=== PATIENT | female | born 2000 | race Caucasian/White ===

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

== ENCOUNTER 2022-06-05 12:40 | Emergency (ER) | payer OTHER, SELFPAY ==
[2022-06-05 12:54] VITALS: BMI 17.9
--- NOTE | 2022-06-05 13:15 | ED_ITS ---
HPI - Abdominal Pain General: Chief Complaint: Abdominal Pain Stated Complaint: abd pain Time Seen by Provider: 06/05/22 13:01 History of Present Illness: Ms. Grande is a 22-year-old lady presenting to the emergency department for abdominal pain. She reports about a week ago having urinary symptoms however these resolved, starting yesterday she has had left flank pain and abdominal pain associated with change in bowel movements. Notes moderate intensity pain worse with palpation and movement. Nausea but no vomiting, also endorses generalized unwell feeling. No other specific changes in health, exacerbating, or alleviating factors identified.. Onset (ago): day(s) Pain Consistency: constant Severity: moderate Quality: stabbing and aching Migration to: no migration Exacerbating factors: movement and other Relieving factors: nothing Associated Symptoms: Reports change in bowel habits and dysuria Related Data: Date of Last Menstrual Period: 05/14/22 Review of Systems General: Reports: 10 or more systems reviewed and unremarkable except in HPI and below GI: Reports: change in bowel habits : Reports: dysuria PFSH ED PFSH: Medical History No pertinent past medical history neghx: htn,dm,thyroid,dvt/pe PCP: [facility] clinic Psychiatric care Sleep disorder Surgical History History of hip surgery Children [place], [place]- in 7th grade hip dislocation during cheerleading. Surgery with pins and rods into the femur. Family History Grandmother Breast cancer Maternal---dx age unknown Stroke Maternal Grandfather Diabetes Paternal Mother Hypercholesteremia Hypertension Stroke Denies family history of Colon cancer Ovarian cancer Heart disease Uterine cancer Thyroid disease Social History Smoking and tobacco status: current every day smoker Alcohol intake: current Alcohol intake frequency: holidays/special occasions only Adopted: No Lives independently: No Household members: significant other and family Housing: Manufactured/Mobile home Female Reproductive History: Date of last menstrual period: 05/14/22 Physical Exam Const: COMMON NORMALS: alert GENERAL APPEARANCE: cooperative and well developed HENMT: COMMON NORMALS: normocephalic and atraumatic HEAD & SCALP: normocephalic and atraumatic Eye: COMMON NORMALS: conjunctivae normal CONJUNCTIVA: Yes conjunctivae normal SCLERA: sclerae normal Neck/C-Spine: COMMON NORMALS: supple GENERAL: Yes trachea midline Resp: COMMON NORMALS: normal respiratory effort EFFORT & INSPECTION: Yes able to speak in complete sentences Cardio: COMMON NORMALS: regular rate and regular rhythm RATE: regular rate RHYTHM: regular rhythm GI: COMMON NORMALS: Soft to palpation PALPATION: Yes Soft to palpation, Yes Tenderness to palpation present (GI), Yes Guarding due to palpation present (GI) and No Rigid due to palpation PERCUSSION: normal to percussion Extremity: GENERAL: Yes normal exam except as noted and No edema Neuro: COMMON NORMALS: moves all extremities SENSORIUM/ORIENTATION: Yes alert and No Orientation impaired Psych: COMMON NORMALS: mental status grossly normal and Normal thought process present THOUGHT PROCESS: Normal thought process present Course Vital Signs: Vital signs: Vital Signs Pulse Rate 62 06/05/22 16:22 Respiratory Rate 18 06/05/22 16:22 Blood Pressure 134/72 06/05/22 15:47 Pulse Oximetry 99 06/05/22 16:22 Oxygen Delivery Me thod Room Air 06/05/22 15:47 MDM - Abdominal Pain Medical Decision Making 22-year-old female presenting to the emergency room with abdominal symptoms. Uncomfortable appearing due to pain however nontoxic. Abdominal tenderness without evidence of acute surgical abdomen. Labs with no significant hematologic abnormality. Metabolic panel with mild hypokalemia and dehydration. Lipase is minimally elevated. Urinalysis concerning for urinary tract infection in the context of symptoms despite mild squamous epithelial contamination. CT demonstrates periportal edema which given absence of laboratory study findings and specific right upper quadrant abdominal tenderness is likely due to fluid bolus, there is mild prominence of pancreatic head and some evidence of constipation. Incidental findings discussed with patient. Patient improved with IV fluids, analgesia, antiemetic and able to tolerate p.o. intake. Antibiotic dose given for UTI. The results of ED evaluation were discussed with the patient including prescriptions and/or symptomatic cares (if applicable) including appropriate and responsible use, followup plan, and return precautions. The patient verbalized understanding and felt safe for discharge. Medical Records I reviewed the patient's medical records. Lab Data I reviewed the patient's lab results. 06/05/22 13:05 06/05/22 13:05 Labs/Radiology: Radiology Impressions Abdomen/Pelvis CT 06/05/22 14:47 IMPRESSION: 1. Small amount of free fluid in the pelvis may be physiologic. 2. Marked periportal edema. This can be seen with excessive IV fluid hydration and acute hepatitis. 3. Mildly prominent pancreatic head. May be on the basis of patient's young age. No discrete mass identified. Correlate for possible mild pancreatitis. 4. The appendix is not visualized. Laboratory Results WBC 10.9 10^3/uL (4.5-13.0) 06/05/22 13:05 RBC 4.79 10^6/uL (4.1-5.3) 06/05/22 13:05 Hgb 13.7 g/dL (11.5-15.3) 06/05/22 13:05 Hct 42.1 % (37.0-47.0) 06/05/22 13:05 MCV 87.9 fl (81-99) 06/05/22 13:05 MCH 28.6 pg (28.0-34.0) 06/05/22 13:05 MCHC 32.5 g/dL (30.0-36.0) 06/05/22 13:05 RDW 12.5 % (12.1-15.1) 06/05/22 13:05 Plt Count 252 10^3/cmm (130-400) 06/05/22 13:05 MPV 10.6 fL (7.4-10.4) H 06/05/22 13:05 Neut % (Auto) 64.9 % 06/05/22 13:05 Lymph % (Auto) 20.5 % 06/05/22 13:05 [place] % (Auto) 10.3 % 06/05/22 13:05 Eos % (Auto) 3.3 % 06/05/22 13:05 Baso % (Auto) 0.6 % 06/05/22 13:05 Neut # (Auto) 7.09 10^3/uL (1.8-8.0) 06/05/22 13:05 Lymph # (Auto) 2.2 10^3/uL (1.5-6.5) 06/05/22 13:05 [place] # (Auto) 1.1 10^3/uL (0.2-0.9) H 06/05/22 13:05 Eos # (Auto) 0.4 10^3/uL (0.0-0.8) 06/05/22 13:05 Baso # (Auto) 0.1 10^3/uL (0.0-0.1) 06/05/22 13:05 Nucleated RBC % (auto) 0 % 06/05/22 13:05 Nucleated RBCs # 0.0 /100WBC 06/05/22 13:05 Sodium 139 mmol/L (136-145) 06/05/22 13:05 Potassium 3.4 mmol/L (3.5-5.1) L 06/05/22 13:05 Chloride 104 mmol/L (98-107) 06/05/22 13:05 Carbon Dioxide 25 mmol/L (22-29) 06/05/22 13:05 Anion Gap 13.4 (5-19) 06/05/22 13:05 BUN 5 mg/dL (6-20) L 06/05/22 13:05 Creatinine 0.6 mg/dL (0.5-0.9) 06/05/22 13:05 GFR Calculation 127.5 mL/min (90-130) 06/05/22 13:05 Glucose 71 mg/dL (65-115) 06/05/22 13:05 Calculated Osmolality 284 mOsm/kg (285-295) L 06/05/22 13:05 Calcium 9.0 mg/dL (8.5-10.5) 06/05/22 13:05 Total Bilirubin 0.2 mg/dL (0.15-1.2) 06/05/22 13:05 AST 13 U/L (0-32) 06/05/22 13:05 ALT 11 U/L (0-33) 06/05/22 13:05 Alkaline Phosphatase 109 U/L (35-105) H 06/05/22 13:05 Total Protein 8.1 g/dL (6.6-8.7) 06/05/22 13:05 Albumin 4.4 g/dL (3.5-5.2) 06/05/22 13:05 Globulin 3.7 g/dL (1.3-4.6) 06/05/22 13:05 Lipase 64 U/L (13-60) H 06/05/22 13:05 HCG, Qual Negative (Negative) 06/05/22 13:05 Urine Color Light yellow (Yellow) 06/05/22 13:00 Urine Appearance Hazy (CLEAR) A 06/05/22 13:00 Urine pH 6 (5-7) 06/05/22 13:00 Ur Specific [place] 1.005 (1.005-1.030) 06/05/22 13:00 Urine Protein Neg (Negative) 06/05/22 13:00 Urine Glucose (UA) Norm (Normal) 06/05/22 13:00 Urine Ketones Negative (Negative) 06/05/22 13:00 Urine Blood 3+ (Negative) H 06/05/22 13:00 Urine Nitrate Negative (Negative) 06/05/22 13:00 Urine Bilirubin Neg (Negative) 06/05/22 13:00 Urine Urobilinogen Norm mg/dL (Negative) 06/05/22 13:00 Ur Leukocyte Esterase 2+ (Negative) H 06/05/22 13:00 Urine RBC 5-10 /hpf (0-2) H 06/05/22 13:00 Urine WBC 55-80 /hpf (0-5) H 06/05/22 13:00 Ur Squamous Epith Cells 5-10 /hpf (0-5) H 06/05/22 13:00 Amorphous Sediment Not Reportable 06/05/22 13:00 Urine Bacteria 1+ /hpf (NONE) H 06/05/22 13:00 Discharge Plan Discharge Patient Disposition: Home Clinical Impression: UTI (urinary tract infection), Pancreatitis, Dehydration, mild Condition: Stable Prescriptions: New ondansetron 4 mg tablet,disintegrating 4 mg PO Q8H PRN (Reason: nausea and vomiting) Qty: 15 0RF oxycodone 5 mg tablet 5 mg PO Q4H PRN (Reason: pain) Qty: 10 0RF No Action paroxetine HCl 25 mg tablet extended release 24 hr 25 mg PO DAILY Qty: 30 1RF prazosin 2 mg capsule 2 mg PO QPM Discharge Orders: Discharge ED (Routine); Ordered 06/05/22 Ordered By: James Raymundo Referrals: Nora Fowler, CONSOLIDATOR [Primary Care Provider] - Discharge Diet: Advance as tolerated and Clear Liquid Discharge Activity: Increase activity as tolerated Patient Instructions: Pancreatitis (ED), Urinary Tract Infection in Women (ED), Opioid Safety Activity Restrictions/Additional Instructions: Thank you for visiting the emergency department. You were seen and evaluated for abdominal pain. The most likely cause of your symptoms is multifactorial including urinary tract infection and mild pancreatitis. I will treat the urinary tract infection with antibiotics. The pancreatitis requires supportive care at this point. Please ensure that you are staying hydrated. I will prescribe oxycodone, use this cautiously as discussed. I will also prescribe antinausea medication. Return to the emergency department for worsening symptoms or anything else that you are concerned about and feel needs emergency department evaluation. Coding Level of Care Code ED Gas Plant Dispatcher for Holly Lemos
[2022-06-05 13:18] VITALS: BP 131/80; PULSE 56; RESP 16; O2SAT 100
[2022-06-05 13:31] LABS: Basophils # 0.1 10^3/uL (0.0-0.1); Basophils % 0.6 %; Eosinophils # 0.4 10^3/uL (0.0-0.8); Eosinophils % 3.3 %; Hematocrit 42.1 % (37.0-47.0); Hemoglobin 13.7 g/dL (11.5-15.3); Lymphocytes # 2.2 10^3/uL (1.5-6.5); Lymphocytes % 20.5 %; Mean Corpuscular HGB Conc 32.5 g/dL (30.0-36.0); Mean Corpuscular Hemoglobin 28.6 pg (28.0-34.0); Mean Corpuscular Volume 87.9 fl (81-99); Mean Platelet Volume 10.6 fL (7.4-10.4); Monocytes # 1.1 10^3/uL (0.2-0.9); Monocytes % 10.3 %; Neutrophils # 7.09 10^3/uL (1.8-8.0); Neutrophils % 64.9 %; Nucleated Red Blood Cells % 0 %; Platelet Count 252 10^3/cmm (130-400); Red Blood Count 4.79 10^6/uL (4.1-5.3); Red Cell Distribution Width 12.5 % (12.1-15.1); White Blood Count 10.9 10^3/uL (4.5-13.0)
[2022-06-05] MEDS: sodium chloride 0.9% 1,000 ML 999 ML IV (13:32)
[2022-06-05] MEDS: ondansetron 2 mg/ML SDV 2 mL 4 MG IVP (13:33)
[2022-06-05] MEDS: morphine 4 mg/mL SDV 1 mL IVP (13:33)
[2022-06-05 13:42] LABS: Alanine Aminotransferase 11 U/L (0-33); Albumin Level 4.4 g/dL (3.5-5.2); Alkaline Phosphatase 109 U/L (35-105); Anion Gap 13.4 (5-19); Aspartate Amino Transferase 13 U/L (0-32); Blood Urea Nitrogen 5 mg/dL (6-20); Carbon Dioxide 25 mmol/L (22-29); Chloride 104 mmol/L (98-107); Globulin 3.7 g/dL (1.3-4.6); Glomerular Filtration Rate 127.5 mL/min (90-130); Glucose 71 mg/dL (65-115); Lipase 64 U/L (13-60); Osmolality Calculated 284 mOsm/kg (285-295); Potassium 3.4 mmol/L (3.5-5.1); Sodium 139 mmol/L (136-145); Total Bilirubin 0.2 mg/dL (0.15-1.2); Total Protein 8.1 g/dL (6.6-8.7)
[2022-06-05 13:51] LABS: HCG, Serum Qual Negative (Negative)
[2022-06-05 14:18] VITALS: PULSE 65; RESP 16; O2SAT 100
[2022-06-05 14:45] LABS: Add Urine Microscopic? YES; Bilirubin Urine Neg (Negative); Blood Urine 3+ (Negative); Glucose Urine UA Norm (Normal); Ketones Urine Negative (Negative); Leukocyte Esterase Urine 2+ (Negative); Nitrate Urine Negative (Negative); Protein Urine Neg (Negative); Specific Gravity, Urine 1.005 (1.005-1.030); Urine Appearance Hazy (CLEAR); Urine Color Light yellow (Yellow); Urobilinogen Urine Norm (Negative); pH Urine 6 (5-7)
[2022-06-05 14:46] LABS: Add Urine Culture? Yes; Bacteria Urine 1+ /hpf; WBC Urine 55-80 /hpf (0-5)
--- NOTE | 2022-06-05 14:47 | CT_ITS ---
WS: [id number] CT ABDOMEN AND PELVIS WITH CONTRAST HISTORY: L flank and generalized abd pain TECHNIQUE: Imaging performed of the abdomen and pelvis with IV contrast. Single phase imaging of the abdomen. Coronal and sagittal reformats are submitted. All CT scans at [facility] use at [address] one of these dose optimization techniques: automated exposure control; mA and/or kV adjustment per patient size (includes targeted exams where dose is matched to clinical indication); or iterative re construction. IV CONTRAST: Omnipaque 350; 100 mL IV. Oral contrast: No DLP: 286.57 mGy.cm COMPARISON: None available. Lower thorax: Lung bases are clear. Heart is normal size. No hiatal hernia. Liver/biliary system: Normal size liver. Marked periportal edema. No liver mass. Normal portal vein. Gallbladder: Normal. No gallstones or wall thickening. No pericholecystic fluid. Pancreas: Pancreatic head is very mildly prominent. No discrete mass. No adjacent inflammation. Commo n bile duct and pancreatic duct are normal. Spleen: Normal size spleen. No mass or infarct. Adrenal glands: Normal. Right kidney: Normal. Left kidney: Normal. Aorta: Normal. Lymphadenopathy: None. Free fluid: Small amount of free fluid in the cul-de-sac. GI tract: Nondistended stomach and small bowel. Moderate air throughout the colon. The appendix is no t definitely visualized. No inflammatory change in the RIGHT lower quadrant to suggest appendicitis. Abdominal wall: Unremarkable abdominal wall. No hernia. Pelvis: Small amount of physiologic free fluid in the pelvis. Bones: Unremarkable. CT/CT abdomen pelvis w con* [id number] IMPRESSION: 1. Small amount of free fluid in the pelvis may be physiologic. 2. Marked periportal edema. This can be seen with excessive IV fluid hydration and acute hepatitis. 3. Mildly prominent pancreatic head. May be on the basis of patient's young ag e. No discrete mass identified. Correlate for possible mild pancreatitis. 4. The appendix is not visualized.
[2022-06-05] MEDS: iohexol 350 mg/mL 500 mL Btl (per mL) IV (15:03)
[2022-06-05 15:47] VITALS: BP 134/72; PULSE 63; RESP 16; O2SAT 100
[2022-06-05] MEDS: cefTRIAXone 1,000 MG in sodium chloride 0.9% (plus) 50 ML 100 MG IV (15:50)
[2022-06-05 16:22] VITALS: PULSE 62; RESP 18; O2SAT 99
== END 2022-06-05 16:23 | disposition home or self-care (01) ==
PROVIDERS: Emergency Provider Emergency Medicine; PCP Nurse Practitioner Family
DX: N39.0 Urinary tract infection, site not specified (principal); K85.90 Acute pancreatitis without necrosis or infection, unspecified; E86.0 Dehydration; F17.210 Nicotine dependence, cigarettes, uncomplicated
CPT/HCPCS: 36415; 74177; 80053; 81001; 83690; 84703; 85025; 87077; 87086; 87186; 96365; 96375; 99285; J0696; J2270; J2405; J7030; Q9967

== ENCOUNTER 2023-06-28 15:05 | Outpatient (CLI) | payer SELFPAY ==
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
== END 2023-06-28 15:06 | disposition home or self-care (01) ==
PROVIDERS: PCP Nurse Practitioner Family; Visit Provider Emergency Medicine
DX: S67.193A Crushing injury of left middle finger, initial encounter (principal); X58.XXXA Exposure to other specified factors, initial encounter
CPT/HCPCS: 73130

== ENCOUNTER 2023-11-02 22:42 | Emergency (ER) | payer OTHER, SELFPAY ==
[2023-11-02 22:47] VITALS: BP 135/74; PULSE 64; RESP 17; O2SAT 100; BMI 18.3
[2023-11-02 23:26] VITALS: BP 109/80; PULSE 67; RESP 16; O2SAT 100
[2023-11-02 23:30] VITALS: BP 128/84; PULSE 57; RESP 16; O2SAT 99
--- NOTE | 2023-11-02 23:56 | W.ED.FEMALGU ---
HPI - Female Genitourinary General: Chief complaint: Urogenital-Female Stated complaint: Little\Pain Time Seen by Provider: 11/02/23 22:55 History of Present Illness: 23-year-old female who says she is G7, P0 at what she believes is 9 weeks or so. She presents with back pain, cramping abdominal pain, and dark brown spotting. She says it started as a light brown spotting yesterday, and is now dark brown. No passage of clots or tissue. No fever. No vomiting. She states she had to have a D&C in October of last year after miscarriage. Date of Last Menstrual Period: 08/22/23 Related Data Previous Rx's Medication Instructions Recorded sertraline 25 mg tablet (Zoloft) 25 mg PO DAILY #30 tabs 03/04/23 Allergies Allergy/AdvReac Type Severity Reaction Status Date / Time Sulfa (Sulfonamide Allergy Intermediate hives Verified 11/02/23 22:51 Antibiotics) lactose Allergy ADR-Gastrointestinal Verified 11/02/23 22:51 Upset [facility] ED PFSH: Medical History Psychiatric care No pertinent past medical history neghx: htn,dm,thyroid,dvt/pe PCP: Mtn. Zheng [facility] clinic Sleep disorder Surgical History History of hip surgery Children [place], [place]- in 7th grade hip dislocation during cheerleading. Surgery with pins and rods into the femur. Family History Grandmother Breast cancer Maternal---dx age unknown Stroke Maternal Grandfather Diabetes Paternal Mother Hypercholesteremia Hypertension Stroke Denies family history of Colon cancer Ovarian cancer Heart disease Uterine cancer Thyroid disease Social History Smoking and tobacco/nicotine status: current every day tobacco/nicotine user Alcohol intake: current Alcohol intake frequency: holidays/special occasions only Substance/Drug Use: current Substance/Drug use frequency: Special occassions/opportunity only Adopted: No Lives independently: No Household members: significant other and family Housing: Manufactured/Mobile home Female Reproductive History: Date of last menstrual period: 08/22/23 Physical Exam Const: COMMON NORMALS: no acute distress GENERAL APPEARANCE: cooperative; not ill appearing and not frail appearing HENMT: COMMON NORMALS: normocephalic, atraumatic and Normal external nose present HEAD & SCALP: normocephalic and atraumatic FACE & SINUS: normal facial exam and face symmetric NOSE: Normal external nose present Eye: COMMON NORMALS: Equal, round and reactive pupils present and EOMs intact bilaterally PUPIL: Yes Equal, round and reactive pupils present Neck/C-Spine: GENERAL: Yes trachea midline Chest: CHEST: Yes Symmetrical chest wall rise Resp: COMMON NORMALS: normal respiratory effort, No retractions, No use of accessory muscles and clear to auscultation bilaterally AUSCULTATION: clear to auscultation bilaterally Cardio: COMMON NORMALS: regular rate and regular rhythm RATE: regular rate RHYTHM: regular rhythm GI: COMMON NORMALS: Normal to inspection, nondistended, normoactive bowel sounds present PALPATION: Yes Tenderness to palpation present (GI) (Pelvic) Extremity: COMMON NORMALS: no pedal edema Neuro: TERRI COMA SCALE: document GCS findings Terir coma scale eye opening: Spontaneous Terri coma scale verbal response: Orientated Terri coma scale motor response: Obey commands [place] coma scale total score: 15 SENSORY EXAM: Yes extremities (intact) Psych: COMMON NORMALS: speech normal SPEECH: Yes normal speech Skin: COMMON NORMALS: no rashes or lesions noted GENERAL SKIN EXAM: no rashes or lesions noted Course Vital Signs: Vital signs: Vital Signs Pulse Rate 67 11/02/23 23:26 Respiratory Rate 16 11/02/23 23:26 Blood Pressure 109/80 11/02/23 23:26 Pulse Oximetry 100 11/02/23 23:26 Oxygen Delivery Me thod Room Air 11/02/23 23:26 MDM - Female Medical Decision Making 23-year-old female presenting with pelvic and back pain, bloody spotting. Prior history of miscarriage. CBC is normal. Bicarbonate is 21. BMP is otherwise not remarkable. No significant urinary tract infection. Ultrasound reveals intrauterine gestational sac, but with no pole. Sac measures 5.5 weeks, which is consistent with her quant. Early versus blighted ovum. Counseled patient on results. She will need follow-up hCG quant in a couple of days. If numbers increasing appropriately, she will require repeat ultrasound to ensure viable and establish dating. She will follow-up with her PCP regarding this. Her ENROLLMENT ELIGIBILITY REPRESENTATIVE has not been established yet. Lab Data 11/02/23 00:04 11/02/23 00:04 Radiology Impressions Obstetrics Ultrasound 11/03/23 01:14 IMPRESSION: 1. Intrauterine gestational sac with a yolk sac but no pole. Findings could represent early intrauterine of uncertain viability. failure cannot be excluded given discordant dating. Recommend close clinical and imaging follow-up. 2. Presumed right ovarian corpus luteum. Attention on follow-up exam. Laboratory Results WBC 11.28 10^3/uL (3.29-11.43) 11/02/23 00:04 RBC 4.41 10^6/uL (3.85-5.65) 11/02/23 00:04 Hgb 13.00 g/dL (11.27-16.99) 11/02/23 00:04 Hct 38.9 % (36-47) 11/02/23 00:04 MCV 88.2 fl (85-98) 11/02/23 00:04 MCH 29.5 pg (27-33) 11/02/23 00:04 MCHC 33.4 g/dL (30-55) 11/02/23 00:04 RDW 13.0 % (12.1-15.1) 11/02/23 00:04 Plt Count 207 10^3/cmm (157-399) 11/02/23 00:04 MPV 10.8 fL (7.4-10.4) H 11/02/23 00:04 Neut % (Auto) 72.3 % 11/02/23 00:04 Lymph % (Auto) 20.5 % 11/02/23 00:04 [place] % (Auto) 5.8 % 11/02/23 00:04 Eos % (Auto) 0.8 % 11/02/23 00:04 Baso % (Auto) 0.3 % 11/02/23 00:04 Neut # (Auto) 8.17 10^3/uL (1.8-7.7) H 11/02/23 00:04 Lymph # (Auto) 2.3 10^3/uL (0.8-4.8) 11/02/23 00:04 [place] # (Auto) 0.7 10^3/uL (0.2-0.9) 11/02/23 00:04 Eos # (Auto) 0.1 10^3/uL (0.0-0.8) 11/02/23 00:04 Baso # (Auto) 0.0 10^3/uL (0.0-0.1) 11/02/23 00:04 Nucleated RBC % (auto) 0 % 11/02/23 00:04 Nucleated RBCs # 0.0 /100WBC 11/02/23 00:04 Sodium 137 mmol/L (136-145) 11/02/23 00:04 Potassium 3.5 mmol/L (3.5-5.1) 11/02/23 00:04 Chloride 102 mmol/L (98-107) 11/02/23 00:04 Carbon Dioxide 21 mmol/L (22-29) L 11/02/23 00:04 Anion Gap 17.5 (5-19) 11/02/23 00:04 BUN 12 mg/dL (6-20) 11/02/23 00:04 Creatinine 0.6 mg/dL (0.5-0.9) 11/02/23 00:04 GFR Calculation 126.2 mL/min (90-130) 11/02/23 00:04 Glucose 89 mg/dL (65-115) 11/02/23 00:04 Calculated Osmolality 283 mOsm/kg (285-295) L 11/02/23 00:04 Calcium 8.9 mg/dL (8.5-10.5) 11/02/23 00:04 Total Bilirubin 0.2 mg/dL (0.15-1.2) 11/02/23 00:04 AST 11 U/L (0-32) 11/02/23 00:04 ALT 9 U/L (0-33) 11/02/23 00:04 Alkaline Phosphatase 64 U/L (35-105) 11/02/23 00:04 C-Reactive Protein 3.0 mg/L (0.0-4.9) 11/02/23 00:04 Total Protein 7.0 g/dL (6.6-8.7) 11/02/23 00:04 Albumin 4.2 g/dL (3.5-5.2) 11/02/23 00:04 Globulin 2.8 g/dL (1.3-4.6) 11/02/23 00:04 Lipase 62 U/L (13-60) H 11/02/23 00:04 Ser , Semi-Qnt 31808.00 mIU/mL 11/02/23 00:04 Urine Color Yellow (Yellow) 11/02/23 23:15 Urine Appearance Clear (CLEAR) 11/02/23 23:15 Urine pH 6.0 (5-7) 11/02/23 23:15 Ur Specific [place] 1.007 (1.005-1.030) 11/02/23 23:15 Urine Protein Negative (Negative) 11/02/23 23:15 Urine Glucose (UA) Negative (Normal) 11/02/23 23:15 Urine Ketones Negative (Negative) 11/02/23 23:15 Urine Blood 2+ (Negative) A 11/02/23 23:15 Urine Nitrate Negative (Negative) 11/02/23 23:15 Urine Bilirubin Negative (Negative) 11/02/23 23:15 Urine Urobilinogen 0.2 mg/dL (Negative) 11/02/23 23:15 Ur Leukocyte Esterase 1+ (Negative) A 11/02/23 23:15 Urine RBC 0-2 /hpf (0-2) 11/02/23 23:15 Urine WBC 0-5 /hpf (0-5) 11/02/23 23:15 Ur Squamous Epith Cells 0-5 /hpf (0-5) 11/02/23 23:15 Amorphous Sediment Not Reportable 11/02/23 23:15 Urine Bacteria Trace /hpf (NONE) 11/02/23 23:15 Hyaline Casts 0.40 /lpf 11/02/23 23:15 All radiology interpretation(s) finalized by discharge Discharge Plan Discharge Patient Disposition: Home Clinical Impression: , spontaneous threatened Condition: Stable Prescriptions: No Action sertraline [Zoloft] 25 mg tablet 25 mg PO DAILY Qty: 30 0RF Discharge Orders: Discharge ED (Routine); Ordered 11/03/23 Ordered By: Robbin Aguilar Referrals: Nora Fowler, CABLE MAKER [Primary Care Provider] - 1-3 days Patient Instructions: Threatened Miscarriage (ED), Opioid Safety, Pain Management Activity Restrictions/Additional Instructions: Your is quite early by blood testing and ultrasound imaging. You will require another quantitative test in a couple of days to ensure it is increasing appropriately. Follow-up with your doctor on Friday or Friday regarding this. If blood test is reassuring, repeat imaging may be needed. Return to the ER for significant vaginal bleeding, soaking 1 pad per hour for more than 3 hours, fever greater than 100, vomiting liquids or medications, worsening pain, other concerning symptoms. Coding Level of Care Code ED Harness Installer for Holly Lemos
[2023-11-03 00:09] LABS: Basophils % 0.3 %; Eosinophils # 0.1 10^3/uL (0.0-0.8); Eosinophils % 0.8 %; Hematocrit 38.9 % (36-47); Lymphocytes # 2.3 10^3/uL (0.8-4.8); Lymphocytes % 20.5 %; Mean Corpuscular HGB Conc 33.4 g/dL (30-55); Mean Corpuscular Hemoglobin 29.5 pg (27-33); Mean Corpuscular Volume 88.2 fl (85-98); Mean Platelet Volume 10.8 fL (7.4-10.4); Monocytes # 0.7 10^3/uL (0.2-0.9); Monocytes % 5.8 %; Neutrophils # 8.17 10^3/uL (1.8-7.7); Neutrophils % 72.3 %; Nucleated Red Blood Cells % 0 %; Platelet Count 207 10^3/cmm (157-399); Red Blood Count 4.41 10^6/uL (3.85-5.65); White Blood Count 11.28 10^3/uL (3.29-11.43)
[2023-11-03 00:15] LABS: Charge for UA Resulting for Rev
[2023-11-03 00:18] LABS: Bilirubin Urine Negative (Negative); Blood Urine 2+ (Negative); Glucose Urine UA Negative (Normal); Ketones Urine Negative (Negative); Leukocyte Esterase Urine 1+ (Negative); Nitrate Urine Negative (Negative); Protein Urine Negative (Negative); Specific Gravity, Urine 1.007 (1.005-1.030); Urine Appearance Clear (CLEAR); Urine Color Yellow (Yellow); Urobilinogen Urine 0.2 mg/dL (Negative)
[2023-11-03 00:23] LABS: Bacteria Urine Trace /hpf; RBC Urine 0-2 /hpf (0-2); Squamous Epithelial Cell Urine 0-5 /hpf (0-5); WBC Urine 0-5 /hpf (0-5)
[2023-11-03 00:41] LABS: Alanine Aminotransferase 9 U/L (0-33); Albumin Level 4.2 g/dL (3.5-5.2); Alkaline Phosphatase 64 U/L (35-105); Anion Gap 17.5 (5-19); Aspartate Amino Transferase 11 U/L (0-32); Blood Urea Nitrogen 12 mg/dL (6-20); Calcium 8.9 mg/dL (8.5-10.5); Carbon Dioxide 21 mmol/L (22-29); Chloride 102 mmol/L (98-107); Creatinine Clr Calc Pharmacy 112.8656; Globulin 2.8 g/dL (1.3-4.6); Glomerular Filtration Rate 126.2 mL/min (90-130); Glucose 89 mg/dL (65-115); Lipase 62 U/L (13-60); Osmolality Calculated 283 mOsm/kg (285-295); Potassium 3.5 mmol/L (3.5-5.1); Sodium 137 mmol/L (136-145); Total Bilirubin 0.2 mg/dL (0.15-1.2)
--- NOTE | 2023-11-03 01:14 | USR_ITS ---
PROCEDURE INFORMATION: Exam: US First Trimester, Transabdominal and US , Transvaginal Exam date and time: 11/03/2023 1:16 AM Age: 23 years old Clinical indication: Lmp or gestational age (in weeks): 5w5d per ultrasound; Antepartum complications; Bleeding; ; Prior surgery; Surgery date: 6+ months; Surgery type: Patient had a d&c; Additional info: Vaginal bleeding 9 weeks LABS AND CLINICAL REPORTS: Last menstrual period start date: 08/21/2023 Gestational age (Established): 10 w 4 d Estimated due date (Established): 05/27/2024 TECHNIQUE: Imaging protocol: Real-time transabdominal obstetrical ultrasound of the maternal pelvis and a first trimester , less than 14 weeks 0 days, with image documentation. Transvaginal imaging was used for better evaluation of the fetus, adnexa, and/or cervix. COMPARISON: US OB transvaginal [facility] 01/28/2022 1:52 PM FINDINGS: GESTATION: Gestation: Single intrauterine gestational sac with yolk sac visualized. pole is not identified. BIOMETRY: Mean sac diameter: 0.92 cm. EGA (MSD) is 5 w 5 d MATERNAL: Uterus: Unremarkable. Cervix: Cervical length measures 3.2 cm. Right ovary/adnexa: There is a complex lesion within the right ovary with peripheral flow which probably represents a corpus luteum. Normal ovarian blood flow. Left ovary/adnexa: Normal-appearing left ovary with blood flow. Intraperitoneal space: Small volume pelvic free fluid. US/US OB <=14 wk fetus w transvag IMPRESSION: 1. Intrauterine gestational sac with a yolk sac but no pole. Findings could represent early intrauterine of uncertain viability. failure cannot be excluded given discordant dating. Recommend close clinical and imaging follow-up. 2. Presumed right ovarian corpus luteum. Attention on follow-up exam.
[2023-11-03 02:00] VITALS: BP 117/68; PULSE 74; RESP 16; O2SAT 100
[2023-11-03 02:32] VITALS: PULSE 70; RESP 16; O2SAT 100
== END 2023-11-03 02:33 | disposition home or self-care (01) ==
PROVIDERS: Emergency Provider Emergency Medicine; PCP Nurse Practitioner Family
DX: O20.0 Threatened abortion (principal); Z3A.09 9 weeks gestation of pregnancy; Z72.0 Tobacco use
CPT/HCPCS: 36415; 76801; 76817; 80053; 81003; 81015; 83690; 84702; 85025; 86140; 99284

== ENCOUNTER 2023-11-10 12:16 | Emergency (ER) | payer OTHER, SELFPAY ==
[2023-11-10 12:48] VITALS: BP 118/77; PULSE 66; TEMP 36.6; O2SAT 100; BMI 17.4
[2023-11-10 13:24] LABS: Basophils % 0.5 %; Eosinophils % 0.2 %; Lymphocytes # 1.1 10^3/uL (0.8-4.8); Lymphocytes % 13.8 %; Mean Corpuscular Hemoglobin 30.4 pg (27-33); Mean Corpuscular Volume 86.8 fl (85-98); Mean Platelet Volume 10.6 fL (7.4-10.4); Monocytes # 0.5 10^3/uL (0.2-0.9); Monocytes % 6.4 %; Neutrophils # 6.42 10^3/uL (1.8-7.7); Neutrophils % 78.7 %; Nucleated Red Blood Cells % 0 %; Platelet Count 279 10^3/cmm (157-399); Red Blood Count 5.07 10^6/uL (3.85-5.65); Red Cell Distribution Width 12.7 % (12.1-15.1); White Blood Count 8.16 10^3/uL (3.29-11.43)
[2023-11-10 13:49] LABS: Alanine Aminotransferase 9 U/L (0-33); Albumin Level 4.8 g/dL (3.5-5.2); Alkaline Phosphatase 77 U/L (35-105); Anion Gap 18.1 (5-19); Aspartate Amino Transferase 12 U/L (0-32); Blood Urea Nitrogen 9 mg/dL (6-20); Calcium 9.8 mg/dL (8.5-10.5); Carbon Dioxide 25 mmol/L (22-29); Chloride 98 mmol/L (98-107); Creatinine Clr Calc Pharmacy 110.7415; Globulin 3.4 g/dL (1.3-4.6); Glomerular Filtration Rate 126.2 mL/min (90-130); Glucose 91 mg/dL (65-115); Lipase 40 U/L (13-60); Osmolality Calculated 282 mOsm/kg (285-295); Potassium 4.1 mmol/L (3.5-5.1); Sodium 137 mmol/L (136-145); Total Bilirubin 0.7 mg/dL (0.15-1.2); Total Protein 8.2 g/dL (6.6-8.7)
[2023-11-10] MEDS: sodium chloride 0.9% 1,000 ML 999 ML IV ×2 (16:10→16:16)
--- NOTE | 2023-11-10 16:18 | USR_ITS ---
PROCEDURE INFORMATION: Exam: US , Transvaginal Exam date and time: 11/10/2023 4:35 PM Age: 23 years old Clinical indication: Lmp or gestational age (in weeks): 6 weeks 4 days; Antepartum complications; Bleeding; ; Additional info: Continued bleeding; Decreasing hcg; F/u US TECHNIQUE: Imaging protocol: Real-time transvaginal obstetrical ultrasound of the maternal pelvis with image documentation. Transvaginal imaging was used for better evaluation of the fetus, adnexa, and/or cervix. COMPARISON: US OB <=14 wk fetus w transvag 11/03/2023 1:16 AM FINDINGS: Gestation: pole is visualized. Yolk sac is visualized. Yolk sac measures 3.6 mm. heart rate: 131 bpm BIOMETRY: Mean sac diameter: 1.49 cm. EGA (MSD) is 6 w 2 d [place] rump length (CRL): 6 mm MATERNAL: Uterus: Uterus measures 8.4 x 4.1 x 5.7 cm. Intrauterine gestation noted. Cervix is closed. Right ovary/adnexa: Right ovary measures 1.4 x 3.0 x 2.8 cm. No ovarian mass. Preserved ovarian vascular flow. Left ovary/adnexa: Left ovary measures 4.8 x 1.6 x 2.3 cm. No ovarian mass. Preserved ovarian vascular flow. US/US OB transvaginal [id number] IMPRESSION: Live intrauterine gestation.
--- NOTE | 2023-11-10 16:19 | ED_ITS ---
HPI - Nausea/Vomiting/Diarrhea 2 General: Chief complaint: Nausea/Vomiting/Diarrhea Stated complaint: 7 weeks preg, n,v Time Seen by Provider: 11/10/23 16:01 Source: patient Mode of arrival: ambulatory Limitations: no limitations History of Present Illness: Patient is a 23-year-old female at early gestation anywhere from 5 to 7 weeks here for complaints of nausea and vomiting and not being able to hold anything down over the past 3 days. Patient was seen in our facility on 11/02 for abdominal cramping and spotting. hCG at that time was little over 11,000. She had an ultrasound performed which showed: US/US OB <=14 wk fetus w transvag IMPRESSION: 1. Intrauterine gestational sac with a yolk sac but no pole. Findings could represent early intrauterine of uncertain viability. failure cannot be excluded given discordant dating. Recommend close clinical and imaging follow-up. 2. Presumed right ovarian corpus luteu m. Attention on follow-up exam. Patient instructed to follow-up with ultrasound and repeat hCG which she has not done. Patient states she has continued to spot. MD elicited complaint: nausea and vomiting Onset (ago): day(s) Associated nausea: Yes Associated abdominal pain: No Severity: moderate Exacerbating factors: eating Relieving factors: none Associated symtoms: Reports no associated symptoms and nausea; Denies chest pain, dizziness, dysuria, fatigue, headache(s) or malaise Related Data Previous Rx's Medication Instructions Recorded sertraline 25 mg tablet (Zoloft) 25 mg PO DAILY #30 tabs 03/04/23 metoclopramide HCl 10 mg tablet 10 mg PO Q6H PRN nausea and 11/10/23 vomiting #14 tabs Allergies Allergy/AdvReac Type Severity Reaction Status Date / Time Sulfa (Sulfonamide Allergy Intermediate hives Verified 11/10/23 12:52 Antibiotics) lactose Allergy ADR-Gastrointestinal Verified 11/10/23 12:52 Upset Review of Systems 2 Const: Denies: fever(s), chills, body aches, fatigue or malaise Card: Denies: chest pain Resp: Denies: dyspnea GI: Reports: nausea and vomiting; Denies: abdominal pain, hematemesis, diarrhea or change in bowel habits : Reports: vaginal bleeding (continued spotting); Denies: flank pain, difficulty voiding, dysuria, urinary frequency, urinary urgency or urinary hesitancy Musc: Denies: neck pain, back pain, extremity pain or joint pain Skin/Breast: Denies: rash Neuro: Denies: headache(s), numbness in extremities, weakness in extremities, sensory changes or dizziness PFS ED 2 PFSH: Medical History Psychiatric care No pertinent past medical history neghx: htn,dm,thyroid,dvt/pe PCP: Mtn. Zheng [facility] clinic Sleep disorder Surgical History History of hip surgery Children [facility], [place]- in 7th grade hip dislocation during cheerleading. Surgery with pins and rods into the femur. Family History Grandmother Breast cancer Maternal---dx age unknown Stroke Maternal Grandfather Diabetes Paternal Mother Hypercholesteremia Hypertension Stroke Denies family history of Colon cancer Ovarian cancer Heart disease Uterine cancer Thyroid disease Social History Smoking and tobacco/nicotine status: current every day tobacco/nicotine user Alcohol intake: current Alcohol intake frequency: holidays/special occasions only Substance/Drug Use: current Substance/Drug use frequency: Special occassions/opportunity only Adopted: No Lives independently: No Household members: significant other and family Housing: Manufactured/Mobile home Physical Exam 2 Const: COMMON NORMALS: no acute distress, patient oriented x3, no limitations, alert and well nourished GENERAL APPEARANCE: cooperative NUTRITIONAL APPEARANCE: thin ORIENTATION/CONSCIOUSNESS: Yes awake, Yes oriented to person, Yes oriented to place and Yes oriented to time Resp: COMMON NORMALS: normal respiratory effort and clear to auscultation bilaterally AUSCULTATION: clear to auscultation bilaterally Cardio: COMMON NORMALS: regular rate and regular rhythm RATE: regular rate RHYTHM: regular rhythm GI: COMMON NORMALS: Normal to inspection, nondistended, normoactive bowel sounds present, Soft to palpation, non-tender, No hepatosplenomegaly present and no masses PALPATION: Yes Soft to palpation and Yes No hepatosplenomegaly present : COMMON NORMALS: Yes no CVA tenderness BLADDER/KIDNEY EXAM: Yes no CVA tenderness Back/Pelvis: COMMON NORMALS: no CVA tenderness Neuro: COMMON NORMALS: patient oriented x3 SENSORIUM/ORIENTATION: Yes alert, Yes oriented to person, Yes oriented to place and Yes oriented to time Course 2 Vital Signs: Vital signs: Vital Signs Temperature 97.8 F 11/10/23 12:48 Pulse Rate 64 11/10/23 18:06 Respiratory Rate 16 11/10/23 18:06 Blood Pressure 110/65 11/10/23 18:06 Pulse Oximetry 100 11/10/23 18:06 Oxygen Delivery Me thod Room Air 11/10/23 17:00 MDM - Nausea/Vomiting/Diarrhea Medical Decision Making Patient is a nice 23-year-old female here for nausea and vomiting during . She was seen in our facility on 11/02 with an ultrasound inconclusive for early /nonviable . Today her hCG seems to be rising appropriately. Ultrasound today showing an early 6w3d gestation with heart rate of 131. She is feeling better after IV fluids and antiemetics and completed oral challenge. Recommend she follow-up with OB to start her OB care. She is cleared from an emergency standpoint. Return precautions given. Medical Records I reviewed the patient's medical records. Lab Data I reviewed the patient's lab results. 11/10/23 13:10 11/10/23 13:10 Radiology Impressions Transvaginal US 11/10/23 16:18 IMPRESSION: Live intrauterine gestation. Laboratory Results WBC 8.16 10^3/uL (3.29-11.43) 11/10/23 13:10 RBC 5.07 10^6/uL (3.85-5.65) 11/10/23 13:10 Hgb 15.40 g/dL (11.27-16.99) 11/10/23 13:10 Hct 44.0 % (36-47) 11/10/23 13:10 MCV 86.8 fl (85-98) 11/10/23 13:10 MCH 30.4 pg (27-33) 11/10/23 13:10 MCHC 35.0 g/dL (30-55) 11/10/23 13:10 RDW 12.7 % (12.1-15.1) 11/10/23 13:10 Plt Count 279 10^3/cmm (157-399) 11/10/23 13:10 MPV 10.6 fL (7.4-10.4) H 11/10/23 13:10 Neut % (Auto) 78.7 % 11/10/23 13:10 Lymph % (Auto) 13.8 % 11/10/23 13:10 [place] % (Auto) 6.4 % 11/10/23 13:10 Eos % (Auto) 0.2 % 11/10/23 13:10 Baso % (Auto) 0.5 % 11/10/23 13:10 Neut # (Auto) 6.42 10^3/uL (1.8-7.7) 11/10/23 13:10 Lymph # (Auto) 1.1 10^3/uL (0.8-4.8) 11/10/23 13:10 [place] # (Auto) 0.5 10^3/uL (0.2-0.9) 11/10/23 13:10 Eos # (Auto) 0.0 10^3/uL (0.0-0.8) 11/10/23 13:10 Baso # (Auto) 0.0 10^3/uL (0.0-0.1) 11/10/23 13:10 Nucleated RBC % (auto) 0 % 11/10/23 13:10 Nucleated RBCs # 0.0 /100WBC 11/10/23 13:10 Sodium 137 mmol/L (136-145) 11/10/23 13:10 Potassium 4.1 mmol/L (3.5-5.1) 11/10/23 13:10 Chloride 98 mmol/L (98-107) 11/10/23 13:10 Carbon Dioxide 25 mmol/L (22-29) 11/10/23 13:10 Anion Gap 18.1 (5-19) 11/10/23 13:10 BUN 9 mg/dL (6-20) 11/10/23 13:10 Creatinine 0.6 mg/dL (0.5-0.9) 11/10/23 13:10 GFR Calculation 126.2 mL/min (90-130) 11/10/23 13:10 Glucose 91 mg/dL (65-115) 11/10/23 13:10 Calculated Osmolality 282 mOsm/kg (285-295) L 11/10/23 13:10 Calcium 9.8 mg/dL (8.5-10.5) 11/10/23 13:10 Total Bilirubin 0.7 mg/dL (0.15-1.2) 11/10/23 13:10 AST 12 U/L (0-32) 11/10/23 13:10 ALT 9 U/L (0-33) 11/10/23 13:10 Alkaline Phosphatase 77 U/L (35-105) 11/10/23 13:10 Total Protein 8.2 g/dL (6.6-8.7) 11/10/23 13:10 Albumin 4.8 g/dL (3.5-5.2) 11/10/23 13:10 Globulin 3.4 g/dL (1.3-4.6) 11/10/23 13:10 Lipase 40 U/L (13-60) 11/10/23 13:10 Ser , Semi-Qnt 39010.00 mIU/mL 11/10/23 13:10 Urine Color Dark yellow (Yellow) A 11/10/23 16:27 Urine Appearance Cloudy (CLEAR) A 11/10/23 16:27 Urine pH 5.5 (5-7) 11/10/23 16:27 Ur Specific [place] 1.030 (1.005-1.030) 11/10/23 16:27 Urine Protein 1+ (Negative) A 11/10/23 16:27 Urine Glucose (UA) Negative (Normal) 11/10/23 16:27 Urine Ketones 3+ (Negative) H 11/10/23 16:27 Urine Blood 1+ (Negative) A 11/10/23 16:27 Urine Nitrate Negative (Negative) 11/10/23 16:27 Urine Bilirubin Negative (Negative) 11/10/23 16:27 Urine Urobilinogen 1.0 mg/dL (Negative) 11/10/23 16:27 Ur Leukocyte Esterase 1+ (Negative) A 11/10/23 16:27 Urine RBC 0-2 /hpf (0-2) 11/10/23 16:27 Urine WBC 11-20 /hpf (0-5) H 11/10/23 16:27 Ur Squamous Epith Cells 11-20 /hpf (0-5) 11/10/23 16:27 Amorphous Sediment Not Reportable 11/10/23 16:27 Urine Bacteria 2+ /hpf (NONE) H 11/10/23 16:27 Hyaline Casts 3.30 /lpf 11/10/23 16:27 XR interpretation done by ED provider, pending radiology final review Discharge Plan Discharge Patient Disposition: Home Clinical Impression: Nausea and vomiting during Condition: Stable Prescriptions: New metoclopramide HCl 10 mg tablet 10 mg PO Q6H PRN (Reason: nausea and vomiting) Qty: 14 0RF No Action sertraline [Zoloft] 25 mg tablet 25 mg PO DAILY Qty: 30 0RF Discharge Orders: Discharge ED (Routine); Ordered 11/10/23 Ordered By: May Luo Referrals: Nora Fowler FNP [Primary Care Provider] - Patient Instructions: Acute Nausea and Vomiting (DC) Activity Restrictions/Additional Instructions: As we discussed, please follow-up with an OB provider as soon as possible to begin your OB care. Coding Level of Care Code ED Chief Operator for Holly Lemos
[2023-11-10 16:37] LABS: Charge for UA Resulting for Rev
[2023-11-10 16:42] LABS: Bilirubin Urine Negative (Negative); Blood Urine 1+ (Negative); Glucose Urine UA Negative (Normal); Ketones Urine 3+ (Negative); Leukocyte Esterase Urine 1+ (Negative); Nitrate Urine Negative (Negative); Protein Urine 1+ (Negative); Urine Appearance Cloudy (CLEAR); Urine Color Dark Yellow (Yellow); pH Urine 5.5 (5-7)
[2023-11-10 16:47] LABS: Bacteria Urine 2+ /hpf; RBC Urine 0-2 /hpf (0-2)
[2023-11-10] MEDS: metoclopramide 5 mg/mL SDV 2 mL 10 MG IVP (16:48)
[2023-11-10 17:00] VITALS: BP 106/63; PULSE 62; RESP 16; O2SAT 99
--- NOTE | 2023-11-10 17:45 | PC.NURSE ---
discharge delayed due to waiting for iv fluids to finish.
[2023-11-10 18:06] VITALS: BP 110/65; PULSE 64; RESP 16; O2SAT 100
== END 2023-11-10 18:04 | disposition home or self-care (01) ==
PROVIDERS: Emergency Medicine; Emergency Provider Physician Assistant; PCP Nurse Practitioner Family
DX: O26.891 Other specified pregnancy related conditions, first trimester (principal); R11.2 Nausea with vomiting, unspecified; Z3A.01 Less than 8 weeks gestation of pregnancy; Z72.0 Tobacco use
CPT/HCPCS: 36415; 76817; 80053; 81003; 81015; 83690; 84702; 85025; 96374; 99284; J2765; J7030

== ENCOUNTER 2024-01-16 05:41 | Emergency (ER) | payer OTHER, SELFPAY ==
[2024-01-16 06:30] VITALS: BMI 17.4
--- NOTE | 2024-01-16 06:32 | ED_ITS ---
HPI - Abdominal Pain 2 General: Chief Complaint: Abdominal Pain Stated Complaint: abd pain (16 wks preg) Time Seen by Provider: 01/16/24 05:44 Source: patient Mode of arrival: ambulatory Limitations: no limitations History of Present Illness: 23-year-old female who is currently 16 w eeks states over last 2 days she has been having vomiting she been having epigastric abdominal pain she states been sharp in nature. States has not been able to tolerate much p.o. She denies any lower abdominal pain denies any fever denies any dysuria denies any vaginal bleeding. Associated Symptoms: Denies chills, diarrhea, dysuria, fever(s), nausea and vomiting Related Data Home Medications Medication Instructions Recorded Confirmed promethazine 12.5 mg tablet 12.5 mg PO Q6H PRN Nausea 01/16/24 01/16/24 Previous Rx's Medication Instructions Recorded metoclopramide HCl 10 mg tablet 10 mg PO Q6H PRN nausea and 11/10/23 vomiting #14 tabs cephalexin 500 mg capsule 500 mg PO TID 7 days #21 caps 01/16/24 metoclopramide HCl 10 mg tablet 10 mg PO Q6H PRN nausea and 01/16/24 (Reglan) vomiting #20 tabs Allergies Allergy/AdvReac Type Severity Reaction Status Date / Time Sulfa (Sulfonamide Allergy Intermediate hives Verified 11/10/23 12:52 Antibiotics) lactose Allergy ADR-Gastrointestinal Verified 11/10/23 12:52 Upset Review of Systems 2 Const: Denies: fever(s), chills, body aches or change in appetite ENMT: Denies: throat pain or dental pain Card: Denies: chest pain Resp: Denies: dyspnea GI: Reports: abdominal pain; Denies: nausea, vomiting or diarrhea : Denies: dysuria Musc: Denies: neck pain or back pain Skin/Breast: Denies: rash Neuro: Denies: headache(s) PFSH ED 2 PFSH: Medical History Psychiatric care No pertinent past medical history neghx: htn,dm,thyroid,dvt/pe PCP: [facility] Sleep disorder Surgical History History of hip surgery Children [place], [place]- in 7th grade hip dislocation during cheerleading. Surgery with pins and rods into the femur. Family History Grandmother Breast cancer Maternal---dx age unknown Stroke Maternal Grandfather Diabetes Paternal Mother Hypercholesteremia Hypertension Stroke Denies family history of Colon cancer Ovarian cancer Heart disease Uterine cancer Thyroid disease Social History Smoking and tobacco/nicotine status: current every day tobacco/nicotine user Alcohol intake: current Alcohol intake frequency: holidays/special occasions only Substance/Drug Use: current Substance/Drug use frequency: Special occassions/opportunity only Adopted: No Lives independently: No Household members: significant other and family Housing: Manufactured/Mobile home Physical Exam 2 Const: COMMON NORMALS: no acute distress, patient oriented x3 and healthy appearing HENMT: COMMON NORMALS: normocephalic and atraumatic HEAD & SCALP: n ormocephalic and atraumatic Eye: COMMON NORMALS: conjunctivae normal CONJUNCTIVA: Yes conjunctivae normal Neck/C-Spine: COMMON NORMALS: full ROM and supple Chest: COMMONS NORMALS: normal inspection of the chest Resp: COMMON NORMALS: normal respiratory effort, No retractions, No use of accessory muscles and clear to auscultation bilaterally AUSCULTATION: clear to auscultation bilaterally Cardio: COMMON NORMALS: regular rate, regular rhythm and No murmurs present (Cardio) RATE: regular rate RHYTHM: regular rhythm GI: COMMON NORMALS: Normal to inspection, nondistended, normoactive bowel sounds present, Soft to palpation and no masses PALPATION: Yes Soft to palpation OTHER: epigastric tenderness Extremity: COMMON NORMALS: normal to inspection and full ROM Neuro: COMMON NORMALS: patient oriented x3, moves all extremities and no focal motor deficits Psych: COMMON NORMALS: mental status grossly normal, Normal thought process present and cooperative THOUGHT PROCESS: Normal thought process present Skin: COMMON NORMALS: no rashes or lesions noted and no wounds GENERAL SKIN EXAM: no rashes or lesions noted Course 2 Vital Signs: Vital signs: Vital Signs Temperature 98.6 F 01/16/24 06:36 Pulse Rate 87 01/16/24 08:52 Respiratory Rate 18 01/16/24 06:36 Blood Pressure 104/61 01/16/24 08:52 Pulse Oximetry 100 01/16/24 08:52 Oxygen Delivery Me thod Room Air 01/16/24 06:36 MDM - Abdominal Pain Medical Decision Making Patient presents for epigastric abdominal pain is likely a gastritis her ultrasound of her gallbladder here is normal blood works all normal she does have a UTI as well did a bedside ultrasound IUP was noted consistent dates heart rate 140s will prescribe her Keflex along with Reglan she is follow-up with her OB return if worsening. Medical Records I reviewed the patient's medical records. Lab Data I reviewed the patient's lab results. 01/16/24 06:28 01/16/24 06:28 Labs/Radiology: Radiology Impressions Gallbladder Ultrasound 01/16/24 06:57 IMPRESSION: Normal right upper quadrant ultrasound. Laboratory Results WBC 7.19 10^3/uL (3.29-11.43) 01/16/24 06:28 RBC 4.44 10^6/uL (3.85-5.65) 01/16/24 06:28 Hgb 13.20 g/dL (11.27-16.99) 01/16/24 06:28 Hct 40.0 % (36-47) 01/16/24 06:28 MCV 90.1 fl (85-98) 01/16/24 06:28 MCH 29.7 pg (27-33) 01/16/24 06:28 MCHC 33.0 g/dL (30-55) 01/16/24 06:28 RDW 12.8 % (12.1-15.1) 01/16/24 06:28 Plt Count 185 10^3/cmm (157-399) 01/16/24 06:28 MPV 10.5 fL (7.4-10.4) H 01/16/24 06:28 Neut % (Auto) 78.1 % 01/16/24 06:28 Lymph % (Auto) 13.5 % 01/16/24 06:28 [place] % (Auto) 6.7 % 01/16/24 06:28 Eos % (Auto) 0.7 % 01/16/24 06:28 Baso % (Auto) 0.6 % 01/16/24 06:28 Neut # (Auto) 5.62 10^3/uL (1.8-7.7) 01/16/24 06:28 Lymph # (Auto) 1.0 10^3/uL (0.8-4.8) 01/16/24 06:28 [place] # (Auto) 0.5 10^3/uL (0.2-0.9) 01/16/24 06:28 Eos # (Auto) 0.1 10^3/uL (0.0-0.8) 01/16/24 06:28 Baso # (Auto) 0.0 10^3/uL (0.0-0.1) 01/16/24 06:28 Nucleated RBC % (auto) 0 % 01/16/24 06:28 Nucleated RBCs # 0.0 /100WBC 01/16/24 06:28 Sodium 134 mmol/L (136-145) L 01/16/24 06:28 Potassium 3.9 mmol/L (3.5-5.1) 01/16/24 06:28 Chloride 101 mmol/L (98-107) 01/16/24 06:28 Carbon Dioxide 21 mmol/L (22-29) L 01/16/24 06:28 Anion Gap 15.9 (5-19) 01/16/24 06:28 BUN 5 mg/dL (6-20) L 01/16/24 06:28 Creatinine 0.5 mg/dL (0.5-0.9) 01/16/24 06:28 GFR Calculation 155.7 mL/min (90-130) H 01/16/24 06:28 Glucose 64 mg/dL (65-115) L 01/16/24 06:28 Calculated Osmolality 273 mOsm/kg (285-295) L 01/16/24 06:28 Calcium 8.4 mg/dL (8.5-10.5) L 01/16/24 06:28 Total Bilirubin 0.3 mg/dL (0.15-1.2) 01/16/24 06:28 AST 11 U/L (0-32) 01/16/24 06:28 ALT 8 U/L (0-33) 01/16/24 06:28 Alkaline Phosphatase 69 U/L (35-105) 01/16/24 06:28 Total Protein 7.2 g/dL (6.6-8.7) 01/16/24 06:28 Albumin 4.1 g/dL (3.5-5.2) 01/16/24 06:28 Globulin 3.1 g/dL (1.3-4.6) 01/16/24 06:28 Lipase 38 U/L (13-60) 01/16/24 06:28 Urine Color Yellow (Yellow) 01/16/24 07:08 Urine Appearance Cloudy (CLEAR) A 01/16/24 07:08 Urine pH 5.5 (5-7) 01/16/24 07:08 Ur Specific [place] 1.024 (1.005-1.030) 01/16/24 07:08 Urine Protein Trace (Negative) A 01/16/24 07:08 Urine Glucose (UA) Negative (Normal) 01/16/24 07:08 Urine Ketones 3+ (Negative) H 01/16/24 07:08 Urine Blood Negative (Negative) 01/16/24 07:08 Urine Nitrate Negative (Negative) 01/16/24 07:08 Urine Bilirubin Negative (Negative) 01/16/24 07:08 Urine Urobilinogen 1.0 mg/dL (Negative) 01/16/24 07:08 Ur Leukocyte Esterase 2+ (Negative) A 01/16/24 07:08 Urine RBC 0-2 /hpf (0-2) 01/16/24 07:08 Urine WBC >100 /hpf (0-5) H 01/16/24 07:08 Ur Squamous Epith Cells 11-20 /hpf (0-5) 01/16/24 07:08 Amorphous Sediment Not Reportable 01/16/24 07:08 Urine Bacteria 4+ /hpf (NONE) H 01/16/24 07:08 Hyaline Casts 3.30 /lpf 01/16/24 07:08 All radiology interpretation(s) finalized by discharge Discharge Plan Discharge Patient Disposition: Home Clinical Impression: Abdominal pain, Acute cystitis Condition: Stable Prescriptions: New cephalexin 500 mg capsule 500 mg PO TID 7 Days Qty: 21 0RF metoclopramide HCl [Reglan] 10 mg tablet 10 mg PO Q6H PRN (Reason: nausea and vomiting) Qty: 20 0RF No Action metoclopramide HCl 10 mg tablet 10 mg PO Q6H PRN (Reason: nausea and vomiting) Qty: 14 0RF promethazine 12.5 mg tablet 12.5 mg PO Q6H PRN (Reason: Nausea) Discharge Orders: Discharge ED (Routine); Ordered 01/16/24 Ordered By: Elisabeth Alexander Referrals: Nora Fowler FNP [Primary Care Provider] - Discharge Diet: Advance as tolerated Discharge Activity: Resume usual activity Patient Instructions: Urinary Tract Infection in Women (ED), Abdominal Pain (ED) Coding Level of Care Code ED Loss Prevention Auditor for Holly Lemos
[2024-01-16 06:34] LABS: Basophils % 0.6 %; Eosinophils # 0.1 10^3/uL (0.0-0.8); Eosinophils % 0.7 %; Lymphocytes % 13.5 %; Mean Corpuscular Hemoglobin 29.7 pg (27-33); Mean Corpuscular Volume 90.1 fl (85-98); Mean Platelet Volume 10.5 fL (7.4-10.4); Monocytes # 0.5 10^3/uL (0.2-0.9); Monocytes % 6.7 %; Neutrophils # 5.62 10^3/uL (1.8-7.7); Neutrophils % 78.1 %; Nucleated Red Blood Cells % 0 %; Platelet Count 185 10^3/cmm (157-399); Red Blood Count 4.44 10^6/uL (3.85-5.65); Red Cell Distribution Width 12.8 % (12.1-15.1); White Blood Count 7.19 10^3/uL (3.29-11.43)
[2024-01-16 06:36] VITALS: BP 106/59; RESP 18; TEMP 37; O2SAT 97
[2024-01-16 06:53] LABS: Alanine Aminotransferase 8 U/L (0-33); Albumin Level 4.1 g/dL (3.5-5.2); Alkaline Phosphatase 69 U/L (35-105); Anion Gap 15.9 (5-19); Aspartate Amino Transferase 11 U/L (0-32); Blood Urea Nitrogen 5 mg/dL (6-20); Calcium 8.4 mg/dL (8.5-10.5); Carbon Dioxide 21 mmol/L (22-29); Chloride 101 mmol/L (98-107); Creatinine Clr Calc Pharmacy 132.8897; Globulin 3.1 g/dL (1.3-4.6); Glomerular Filtration Rate 155.7 mL/min (90-130); Glucose 64 mg/dL (65-115); Lipase 38 U/L (13-60); Osmolality Calculated 273 mOsm/kg (285-295); Potassium 3.9 mmol/L (3.5-5.1); Sodium 134 mmol/L (136-145); Total Bilirubin 0.3 mg/dL (0.15-1.2); Total Protein 7.2 g/dL (6.6-8.7)
--- NOTE | 2024-01-16 06:57 | US_ITS ---
WS: [id number] RIGHT UPPER QUADRANT ULTRASOUND HISTORY: ruq pain COMPARISON: 01/14/2020 Liver: 13.1 cm in length. Normal size liver and echogenicity. No bile duct dilatation or mass. Portal Vein: Normal hepatopetal flow with monophasic waveform. Gallbladder: Normally distended gallbladder with no stones or wall thickening. CBD: 0.2 cm Pancreas: Normal size and echogenicity. Right kidney: 11.0 cm in length. Normal size and echogenicity. No hydronephrosis or mass. Aorta and IVC: Unremarkable abdominal aorta and IVC. No ascites. US/US gall bladder [id number] IMPRESSION: Normal right upper quadrant ultrasound.
[2024-01-16] MEDS: metoclopramide 5 mg/mL SDV 2 mL 10 MG IVP (07:02)
[2024-01-16] MEDS: diphenhydrAMINE 50 mg/mL SDV 1mL IVP (07:02)
[2024-01-16] MEDS: lidocaine 2% viscous 15 ML, aluminum-mag hydrox-simethicon 30 ML, sucralfate oral liq 1 GM PO (07:04)
[2024-01-16 07:07] VITALS: BP 110/71; PULSE 98; O2SAT 98
[2024-01-16] MEDS: sodium chloride 0.9% 1,000 ML 999 ML IV ×2 (07:07→08:17)
[2024-01-16 07:48] LABS: Bilirubin Urine Negative (Negative); Blood Urine Negative (Negative); Glucose Urine UA Negative (Normal); Ketones Urine 3+ (Negative); Leukocyte Esterase Urine 2+ (Negative); Nitrate Urine Negative (Negative); Protein Urine Trace (Negative); Specific Gravity, Urine 1.024 (1.005-1.030); Urine Appearance Cloudy (CLEAR); Urine Color Yellow (Yellow); pH Urine 5.5 (5-7)
[2024-01-16 07:50] LABS: Add Urine Microscopic? YES; Bacteria Urine 4+ /hpf; RBC Urine 0-2 /hpf (0-2); WBC Urine >100 /hpf (0-5)
[2024-01-16 08:04] LABS: Add Urine Culture? No
[2024-01-16] MEDS: cefTRIAXone 1,000 mg SDV 1000 MG IVP (08:17)
[2024-01-16 08:52] VITALS: BP 104/61; PULSE 87; O2SAT 100
== END 2024-01-16 09:04 | disposition home or self-care (01) ==
PROVIDERS: Emergency Provider Emergency Medicine; PCP Nurse Practitioner Family
DX: O23.42 Unspecified infection of urinary tract in pregnancy, second trimester (principal); N39.0 Urinary tract infection, site not specified; Z3A.16 16 weeks gestation of pregnancy
CPT/HCPCS: 36415; 76705; 80053; 81001; 83690; 85025; 96361; 96374; 96375; 99284; J0696; J1200; J2765; J7030

== ENCOUNTER 2024-03-28 16:05 | Outpatient (CLI) | payer OTHER, SELFPAY ==
[2024-03-28 16:05] VITALS: BMI 19.0
[2024-03-28 16:34] VITALS: BP 107/61; PULSE 63
[2024-03-28 16:54] VITALS: BP 122/67; PULSE 84
[2024-03-28 17:10] LABS: Bilirubin Urine Negative (Negative); Blood Urine Negative (Negative); Glucose Urine UA Negative (Normal); Ketones Urine Negative (Negative); Leukocyte Esterase Urine 3+ (Negative); Nitrate Urine Negative (Negative); Protein Urine Negative (Negative); Specific Gravity, Urine 1.011 (1.005-1.030); Urine Appearance Cloudy (CLEAR); Urine Color Yellow (Yellow); Urobilinogen Urine 0.2 mg/dL (Negative)
[2024-03-28 17:14] VITALS: BP 111/71; PULSE 72
[2024-03-28 17:15] LABS: Bacteria Urine 1+ /hpf; RBC Urine 0-2 /hpf (0-2); WBC Urine 0-5 /hpf (0-5)
[2024-03-28 17:34] VITALS: BP 108/69; PULSE 75
[2024-03-28] MEDS: cefTRIAXone 1,000 mg SDV 1000 MG IVP (18:24)
== END 2024-03-28 18:29 | disposition home or self-care (01) ==
LOC: OPOB 16:10 → OBGYN 16:11
PROVIDERS: PCP Nurse Practitioner Family; Visit Provider Obstetrics & Gynecology
DX: O26.899 Other specified pregnancy related conditions, unspecified trimester (principal); Z3A.00 Weeks of gestation of pregnancy not specified; N89.8 Other specified noninflammatory disorders of vagina
CPT/HCPCS: 36415; 81001; 83986; 99211; J0696

== ENCOUNTER → 2024-06-08 12:38 | Outpatient (BNVA) | payer OTHER, SELFPAY | PROVIDERS: PCP Nurse Practitioner Family; Visit Provider Psychiatry & Neurology Psychiatry | DX: F33.1 Major depressive disorder, recurrent, moderate (principal); F41.1 Generalized anxiety disorder | CPT/HCPCS: 80061; 83036 ==

== ENCOUNTER 2024-06-13 21:50 | Outpatient (CLI) | payer OTHER, SELFPAY ==
[2024-06-11 10:47] VITALS: BP 124/75; BMI 21.5
[2024-06-13 21:56] VITALS: BP 129/80; PULSE 73; TEMP 36.7
[2024-06-13 22:11] VITALS: BP 121/78; PULSE 91
[2024-06-13 22:27] VITALS: BP 121/78; PULSE 77
[2024-06-13 22:42] VITALS: BP 139/86; PULSE 80
[2024-06-13 22:56] VITALS: BP 127/77; PULSE 73
[2024-06-13 23:46] VITALS: BP 120/65; PULSE 67
[2024-06-14 00:29] VITALS: BP 120/65; PULSE 67; O2SAT 95
== END 2024-06-14 00:35 | disposition home or self-care (01) ==
LOC: OPOB 21:51 → OBGYN 21:53
PROVIDERS: PCP Nurse Practitioner Family; Visit Provider Obstetrics & Gynecology
DX: Z03.79 Encounter for other suspected maternal and fetal conditions ruled out (principal)
CPT/HCPCS: 59025; 99211

== ENCOUNTER 2024-06-18 18:50 | Outpatient (CLI) | payer OTHER, SELFPAY ==
[2024-06-11 10:47] VITALS: BP 124/75; BMI 21.5
[2024-06-18 19:02] VITALS: BP 121/80; PULSE 98
[2024-06-18 19:18] VITALS: BP 126/86; PULSE 86
[2024-06-18 19:32] VITALS: BP 131/84; PULSE 87
[2024-06-18 19:34] VITALS: BMI 21.7
[2024-06-18 19:36] LABS: Actim Prom Negative
--- NOTE | 2024-06-18 19:36 | PC.NURSE ---
patient came to OB triage with complaints of possible ROM since 06/17/24 at 1900. Patient went to [facility] and was sent to [facility] from there. Patient states she was checked in the er there and was told she was 3cm dilated.
[2024-06-18 19:50] VITALS: BP 131/84; PULSE 86; O2SAT 98
== END 2024-06-18 19:52 | disposition home or self-care (01) ==
LOC: OPOB 18:56 → OBGYN 18:58
PROVIDERS: PCP Nurse Practitioner Family; Visit Provider Obstetrics & Gynecology
DX: O26.899 Other specified pregnancy related conditions, unspecified trimester (principal); Z3A.00 Weeks of gestation of pregnancy not specified; N89.8 Other specified noninflammatory disorders of vagina
CPT/HCPCS: 84112

== ENCOUNTER → 2025-02-23 16:40 | Outpatient (BNVA) | payer BC, SELFPAY ==
[2024-06-11 10:47] VITALS: BP 124/75; BMI 21.5
== END ==
PROVIDERS: PCP Nurse Practitioner Family
DX: R52 Pain, unspecified (principal)
CPT/HCPCS: 87400; 87426